=== PATIENT | male | born 1980 | race Caucasian/White ===

== ENCOUNTER 2021-08-28 10:46 | Emergency (ER) | payer OTHER ==
[~2021-08-28] VITALS: Ht 180.3 cm; Wt 93.2 kg
[2021-08-28] MEDS ORDERED: GI COCKTAIL 50ML BTL(HYOSCYAMINE/MAALOX/LIDOCAINE VISCOUS)(1:3:1) PO ONE (11:20)
[2021-08-28 11:34] LABS: BASO # 0.1 10^3/uL (0.0-0.2); BASO % 1.7 % (0.0-1.0); EOS # 0.1 10^3/uL (0.0-0.5); EOS % 1.3 % (0.0-3.0); HEMATOCRIT 43.8 % (42.0-52.0); LYMPH # 1.9 10^3/uL (1.5-5.0); LYMPH % 40.6 % (24.0-44.0); MEAN CORPUSCULAR HEMOGLOBIN 31.1 pg (27.0-33.0); MEAN CORPUSCULAR HGB CONC 34.2 g/dl (32.0-36.5); MEAN CORPUSCULAR VOLUME 90.9 fl (80.0-96.0); MONO # 0.3 10^3/uL (0.0-0.8); MONO % 6.4 % (2.0-8.0); NEUTROPHILS # 2.3 10^3/uL (1.5-8.5); NEUTROPHILS % 49.8 % (36.0-66.0); PLATELET COUNT, AUTOMATED 259 10^3/uL (150-450); RED BLOOD COUNT 4.82 10^6/uL (4.30-6.10); WHITE BLOOD COUNT 4.7 10^3/uL (4.0-10.0)
[2021-08-28 11:44] LABS: INR 0.98; PROTHROMBIN TIME 13.4 SECONDS (12.7-14.5)
[2021-08-28 11:45] LABS: PARTIAL THROMBOPLASTIN TIME 27.5 SECONDS (25.9-37.0)
[2021-08-28 12:03] LABS: ALBUMIN 4.2 GM/DL (3.2-5.2); ALT/SGPT 41 U/L (12-78); BILIRUBIN,DIRECT 0.1 MG/DL (0.0-0.2); BILIRUBIN,TOTAL 0.5 MG/DL (0.2-1.0); BLOOD UREA NITROGEN 18 MG/DL (7-18); CALCIUM LEVEL 9.8 MG/DL (8.5-10.1); CARBON DIOXIDE LEVEL 26 MEQ/L (21-32); CHLORIDE LEVEL 105 MEQ/L (98-107); CREATININE FOR GFR 1.08 MG/DL (0.70-1.30); GLOMERULAR FILTRATION RATE > 60.0 (>60); GLUCOSE, FASTING 87 MG/DL (70-100); LIPASE 202 U/L (73-393); POTASSIUM SERUM 4.3 MEQ/L (3.5-5.1); SODIUM LEVEL 141 MEQ/L (136-145); TOTAL PROTEIN 7.5 GM/DL (6.4-8.2)
[2021-08-28 12:04] LABS: CK-MB VALUE MASS 1.9 NG/ML (<3.6); MB/CK RELATIVE INDEX 0.79 (< OR =4)
[2021-08-28 13:06] LABS: CK-MB VALUE MASS 1.5 NG/ML (<3.6); MB/CK RELATIVE INDEX 0.64 (< OR =4)
[2021-08-28 13:07] LABS: RSV AMPLIFICATION NEGATIVE (NEGATIVE)
[2021-08-28] MEDS ORDERED: KETOROLAC 30 MG/ML 1ML VIAL IV ONE (13:55)
[2021-08-28 14:19] LABS: MAGNESIUM LEVEL 2.3 MG/DL (1.8-2.4)
[2021-08-28] MEDS ORDERED: ISOVUE-370 76% 100ML VIAL As Ordered ONE (15:01)
[2021-08-28 16:00] VITALS: BP 127/80
[2021-08-28] MEDS ORDERED: EFFE37.5 PO (16:07)
== END 2021-08-28 16:00 | disposition home or self-care (01) ==
LOC: M ED 10:46 → EDBD 10:46 → M ED 16:00
DX: R07.89 Other chest pain (principal); R00.2 Palpitations; Z88.8 Allergy status to other drugs, medicaments and biological substances; Z79.899 Other long term (current) drug therapy
CPT/HCPCS: 36415; 71045; 71275; 80048; 80076; 82550; 82553; 83690; 83735; 84484; 85025; 85610; 85730; 87631; 93005; 93041; 94760; 96374; 99285; J1885; Q9967

== ENCOUNTER 2021-10-12 20:16 | Inpatient (IN) | payer OTHER ==
[~2021-10-12] VITALS: Ht 177.8 cm; Wt 93.2 kg
[~2021-10-12 20:16] MED LIST: EFFE37.5 PO
[2021-10-12] MEDS ORDERED: VENL75CA47 PO (20:56)
[2021-10-12] MEDS ORDERED: VENLAFAXINE **XR** 75MG CAPSULE PO ONE (21:35)
[2021-10-12 22:16] LABS: HEMATOCRIT 44.8 % (42.0-52.0); HEMOGLOBIN 15.6 g/dl (13.5-17.5); MEAN CORPUSCULAR HEMOGLOBIN 31.6 pg (27.0-33.0); MEAN CORPUSCULAR HGB CONC 34.8 g/dl (32.0-36.5); MEAN CORPUSCULAR VOLUME 90.7 fl (80.0-96.0); PLATELET COUNT, AUTOMATED 270 10^3/uL (150-450); RED BLOOD COUNT 4.94 10^6/uL (4.30-6.10); WHITE BLOOD COUNT 5.7 10^3/uL (4.0-10.0)
[2021-10-12 22:22] LABS: AMPHETAMINES LEVEL URINE NEGATIVE (NEGATIVE); BARBITURATES URINE NEGATIVE (NEGATIVE); BENZODIAZEPINES URINE NEGATIVE (NEGATIVE); CANNABINOIDS URINE NEGATIVE (NEGATIVE); COCAINE METABOLITE URINE NEGATIVE (NEGATIVE); METHADONE URINE NEGATIVE (NEGATIVE); OPIATES URINE NEGATIVE (NEGATIVE); PHENCYCLIDINE URINE NEGATIVE (NEGATIVE)
[2021-10-12 22:35] LABS: RSV AMPLIFICATION NEGATIVE (NEGATIVE)
[2021-10-12 22:43] LABS: ACETAMINOPHEN LEVEL < 2.0 UG/ML (10.0-30.0); ALBUMIN 4.5 GM/DL (3.2-5.2); ALT/SGPT 43 U/L (12-78); BILIRUBIN,DIRECT 0.1 MG/DL (0.0-0.2); BILIRUBIN,TOTAL 0.7 MG/DL (0.2-1.0); BLOOD UREA NITROGEN 14 MG/DL (7-18); CALCIUM LEVEL 9.9 MG/DL (8.5-10.1); CARBON DIOXIDE LEVEL 30 MEQ/L (21-32); CHLORIDE LEVEL 104 MEQ/L (98-107); CREATININE FOR GFR 1.19 MG/DL (0.70-1.30); ETHYL ALCOHOL (ETHANOL) < 0.003 % (0.000-0.010); GLOMERULAR FILTRATION RATE > 60.0 (>60); GLUCOSE, FASTING 91 MG/DL (70-100); MAGNESIUM LEVEL 2.2 MG/DL (1.8-2.4); POTASSIUM SERUM 4.4 MEQ/L (3.5-5.1); SALICYLATE LEVEL < 1.7 MG/DL (5.0-30.0); SODIUM LEVEL 142 MEQ/L (136-145)
[2021-10-13] MEDS ORDERED: MOM 30ML SUSPENSION UDC PO PRN (04:40)
[2021-10-13] MEDS ORDERED: ACETAMINOPHEN TAB 650MG DOSE (2X325MG) PO PRN (04:40)
[2021-10-13] MEDS ORDERED: traZODone 50 MG TAB PO PRN (04:40)
[2021-10-13] MEDS ORDERED: MAALOX 30 ML SUSP *UDC PO PRN (04:40)
[2021-10-13] MEDS ORDERED: HOME MED LIST COMPLETE! XX SCH (05:15)
[2021-10-13] MEDS: VENLAFAXINE **XR** 75MG CAPSULE PO SCH (17:06)
[2021-10-14 07:06] VITALS: BP 116/68
[2021-10-14] MEDS: VENLAFAXINE **XR** 75MG CAPSULE PO SCH ×2 (08:20→16:27)
[2021-10-15 06:27] VITALS: BP 120/68
[2021-10-15 16:27] VITALS: BP 114/71
[2021-10-15] MEDS: VENLAFAXINE **XR** 75MG CAPSULE PO SCH (17:06)
[2021-10-16 06:32] VITALS: BP 128/88
[2021-10-16] MEDS ORDERED: VENL75CA47 PO (09:27)
== END 2021-10-16 14:10 | disposition home or self-care (01) | DRG 885 ==
LOC: M ED 20:16 → M ED INP 10-13 04:37 → M PSY 10-13 08:46
PROVIDERS: ADMIT Psychiatry & Neurology Psychiatry; ATTEND Psychiatry & Neurology Psychiatry
DX: F33.2 Major depressive disorder, recurrent severe without psychotic features (principal); R45.851 Suicidal ideations; F43.10 Post-traumatic stress disorder, unspecified; Z87.820 Personal history of traumatic brain injury; Z20.822 Contact with and (suspected) exposure to COVID-19; Z88.8 Allergy status to other drugs, medicaments and biological substances; Z86.16 Personal history of COVID-19; M19.011 Primary osteoarthritis, right shoulder

== ENCOUNTER 2024-02-16 11:35 | Emergency (ER) | payer OTHER ==
[~2024-02-16] VITALS: Ht 177.8 cm; Wt 112.4 kg
[~2024-02-16 11:35] MED LIST changes: -EFFE37.5 PO; +EFFE37.52 PO; +VENL75CA47 PO
[2024-02-16 13:45] LABS: BASO # 0.1 10^3/uL (0.0-0.2); BASO % 1.6 % (0.0-1.0); EOS # 0.1 10^3/uL (0.0-0.5); EOS % 1.8 % (0.0-3.0); HEMATOCRIT 41.7 % (42.0-52.0); HEMOGLOBIN 14.8 g/dl (13.5-17.5); LYMPH # 2.5 10^3/uL (1.5-5.0); MEAN CORPUSCULAR HEMOGLOBIN 32.3 pg (27.0-33.0); MEAN CORPUSCULAR HGB CONC 35.5 g/dl (32.0-36.5); MONO # 0.3 10^3/uL (0.0-0.8); MONO % 6.6 % (2.0-8.0); NEUTROPHILS # 2.2 10^3/uL (1.5-8.5); PLATELET COUNT, AUTOMATED 258 10^3/uL (150-450); RED BLOOD COUNT 4.58 10^6/uL (4.30-6.10); WHITE BLOOD COUNT 5.1 10^3/uL (4.0-10.0)
[2024-02-16 14:11] LABS: CK-MB VALUE MASS 1.3 NG/ML (<3.6)
[2024-02-16 14:13] LABS: ALKALINE PHOSPHATASE 68 U/L (46-116); ALT/SGPT 49 U/L (7.0-40); AST/SGOT 24 U/L (<34); BILIRUBIN,DIRECT 0.1 MG/DL (<0.4); BILIRUBIN,TOTAL 0.4 MG/DL (0.3-1.2); BLOOD UREA NITROGEN 10 MG/DL (9-23); CALCIUM LEVEL 9.5 MG/DL (8.5-10.1); CARBON DIOXIDE LEVEL 27 MMOL/L (20-31); CHLORIDE LEVEL 108 MMOL/L (98-107); CREATININE FOR GFR 1.03 MG/DL (0.70-1.30); GLOMERULAR FILTRATION RATE > 60.0 (>60); GLUCOSE, FASTING 89 MG/DL (60-100); MAGNESIUM LEVEL 2.1 MG/DL (1.8-2.4); POTASSIUM SERUM 4.3 MMOL/L (3.5-5.1); SODIUM LEVEL 141 MMOL/L (136-145); TOTAL PROTEIN 7.3 G/DL (5.7-8.2)
[2024-02-16 14:14] LABS: THYROID STIMULATING HORMONE 1.986 uIU/ML (0.55-4.78)
[2024-02-16 14:21] LABS: CPK CREATINE PHOSPHOKINASE 162 U/L (46-171)
[2024-02-16] MEDS: MECLIZINE 25 MG TABLET PO ONE (16:30)
[2024-02-16 17:49] VITALS: BP 118/68; TEMP 98.5; O2SAT 97
[2024-02-16] MEDS ORDERED: vestibular PT (18:32)
[2024-02-16] MEDS ORDERED: MECL-209 PO (18:32)
== END 2024-02-16 18:44 | disposition home or self-care (01) ==
LOC: M ED 11:35
DX: R42 Dizziness and giddiness (principal); F43.10 Post-traumatic stress disorder, unspecified; Z87.820 Personal history of traumatic brain injury; Z79.899 Other long term (current) drug therapy; Z88.8 Allergy status to other drugs, medicaments and biological substances

== ENCOUNTER 2024-06-03 13:11 | Emergency (ER) | payer OTHER ==
[~2024-06-03] VITALS: Ht 177.8 cm; Wt 110.4 kg
[~2024-06-03 13:11] MED LIST changes: +MECL-209 PO; +vestibular PT
[2024-06-03 13:53] LABS: BASO # 0.1 10^3/uL (0.0-0.2); BASO % 1.8 % (0.0-1.0); EOS # 0.1 10^3/uL (0.0-0.5); EOS % 2.4 % (0.0-3.0); HEMATOCRIT 44.5 % (42.0-52.0); HEMOGLOBIN 15.3 g/dl (13.5-17.5); LYMPH # 2.2 10^3/uL (1.5-5.0); LYMPH % 47.5 % (24.0-44.0); MEAN CORPUSCULAR HEMOGLOBIN 31.9 pg (27.0-33.0); MEAN CORPUSCULAR HGB CONC 34.4 g/dl (32.0-36.5); MEAN CORPUSCULAR VOLUME 92.7 fl (80.0-96.0); MONO # 0.3 10^3/uL (0.0-0.8); MONO % 5.5 % (2.0-8.0); NEUTROPHILS # 1.9 10^3/uL (1.5-8.5); NEUTROPHILS % 42.6 % (36.0-66.0); PLATELET COUNT, AUTOMATED 265 10^3/uL (150-450); WHITE BLOOD COUNT 4.6 10^3/uL (4.0-10.0)
[2024-06-03 14:10] LABS: INR 1.02; PROTHROMBIN TIME 13.7 SECONDS (12.5-14.5)
[2024-06-03 14:19] LABS: LIPASE 41 U/L (12-53)
[2024-06-03 14:21] LABS: ALBUMIN 4.2 G/DL (3.2-5.2); ALKALINE PHOSPHATASE 70 U/L (40-129); ALT/SGPT 57 U/L (7.0-40); AST/SGOT 28 U/L (<34); BILIRUBIN,DIRECT 0.1 MG/DL (<0.4); BILIRUBIN,TOTAL 0.5 MG/DL (0.3-1.2); BLOOD UREA NITROGEN 16 MG/DL (9-23); CALCIUM LEVEL 9.1 MG/DL (8.5-10.1); CARBON DIOXIDE LEVEL 27 MMOL/L (20-31); CHLORIDE LEVEL 107 MMOL/L (98-107); GLOMERULAR FILTRATION RATE > 60.0 (>60); GLUCOSE, FASTING 97 MG/DL (60-100); POTASSIUM SERUM 4.7 MMOL/L (3.5-5.1); SODIUM LEVEL 142 MMOL/L (136-145); TOTAL PROTEIN 7.7 G/DL (5.7-8.2)
[2024-06-03 14:23] LABS: CPK CREATINE PHOSPHOKINASE 154 U/L (46-171); MB/CK RELATIVE INDEX 0.64 (< OR =4)
[2024-06-03] MEDS ORDERED: ISOVUE-370 76% 100ML VIAL As Ordered ONE (18:40)
[2024-06-03 22:00] VITALS: BP 123/58; TEMP 97.3; O2SAT 97
== END 2024-06-03 22:16 | disposition home or self-care (01) ==
LOC: M ED 13:11
DX: R07.89 Other chest pain (principal); F32.A Depression, unspecified; Z87.820 Personal history of traumatic brain injury; Z79.899 Other long term (current) drug therapy; Z88.8 Allergy status to other drugs, medicaments and biological substances
CPT/HCPCS: 71045; 71275; 80048; 80076; 82550; 82553; 83690; 84484; 85025; 85610; 93005; 99284; Q9967

== ENCOUNTER 2024-06-25 10:33 | Emergency (ER) | payer OTHER ==
[~2024-06-25] VITALS: Ht 172.7 cm; Wt 109.4 kg
[2024-06-25 14:46] VITALS: BP 140/83; TEMP 98; O2SAT 97
[2024-06-25] MEDS ORDERED: IBUP-1022 PO (15:29)
== END 2024-06-25 15:40 | disposition home or self-care (01) ==
LOC: M ED 10:33
DX: R59.0 Localized enlarged lymph nodes (principal); Z87.820 Personal history of traumatic brain injury; F32.9 Major depressive disorder, single episode, unspecified; F43.10 Post-traumatic stress disorder, unspecified; M54.81 Occipital neuralgia; Z79.899 Other long term (current) drug therapy; Z88.8 Allergy status to other drugs, medicaments and biological substances